=== PATIENT | female | born 1940 | race Caucasian/White ===

== ENCOUNTER 2017-05-05 09:38 | Day surgery (SDC) | payer MEDICARE, OTHER ==
[~2017-05-05 09:38] MED LIST: Bisacodyl 5 MG Tab PO PRN; Cyclobenzaprine 10 MG Tab PO PRN; Lactated Ringers 1,000 ML IV SCH; Lactated Ringers 1,000 ML ONE; Lidocaine 1% 6 ML ONE; Lidocaine 1%/Sod Bicarbonate in NS 8.4% 1 ML Syringe IV PRN; Magnesium Hydroxide 400 MG/5 ML Susp 30 ML Cup PO PRN; Naloxone 0.4 MG/ML SDV IVPUSH PRN; Ondansetron 4 MG/2 ML SDV IVPUSH PRN; Ondansetron 4 MG/2 ML SDV ONE; Propofol 200 MG/20 ML SDV ONE; Sennosides 8.6 MG Tab PO PRN; Sodium Chloride 0.9% 10 ML Syringe FLUSH PRN; ceFAZolin 1 GM Vial ONE; diphenhydrAMINE 50 MG/ML SDV IVPUSH PRN; fentaNYL 100 MCG/2 ML SDV ONE
[2017-05-05] MEDS ORDERED: Vancomycin 1 GM SDV ONE (10:03)
[2017-05-05] MEDS ORDERED: ceFAZolin 1 GM Vial ONE (10:03)
[2017-05-05] MEDS ORDERED: Bupivacaine 0.25% 30 ML SDV ONE (10:04)
[2017-05-05] MEDS ORDERED: Iodine/Sodium Iodide 2% Tincture 30 ML Bottle ONE (10:04)
--- NOTE | 2017-05-05 10:31 | PCM.PREANE ---
Preanesthetic Assessment - Anesthesia/Transfusion/Family Hx Anesthesia History: Prior Anesthesia Without Reaction Family History of Anesthesia Reaction: No Transfusion History: No Prior Transfusion(s) - Review of Systems General: No Symptoms Pulmonary: No Symptoms Cardiovascular: No Symptoms Gastrointestinal: No Symptoms Neurological: No Symptoms Other: Reports: Thyroid Problems (hypothyroid) - Physical Assessment NPO Status Date: 05/04/17 NPO Status Time: 00:00 Pulse: 57 O2 Sat by Pulse Oximetry: 96 Respiratory Rate: 20 Blood Pressure: 155/73 Temperature: 37.2 C Height: 1.56 m Weight: 78.517 kg ASA Class: 2 Mental Status: Alert & Oriented x3 Dentition: Reports: Normal Dentition, Broken Tooth/Teeth (bottom right) Thyro-Mental Finger Breadths: 3 Mouth Opening Finger Breadths: 3 ROM/Head Extension: Full Lungs: Clear to Auscultation, Normal Respiratory Effort Cardiovascular: Regular Rate, Regular Rhythm, No Murmurs - Lab Values: Laboratory Last Values MRSA (PCR) Negative 04/22/17 10:58 - Imaging/EKG Impressions: EKG 04/21/2017 sinus bradycardia - Allergies Allergies/Adverse Reactions: Allergies Allergy/AdvReac Type Severity Reaction Status Date / Time No Known Allergies Allergy Verified 05/02/17 12:40 - Anesthesia Plan Pre-Op Medication Ordered: None - Acknowledgements Anesthesia Type Planned: Spinal Pt an Appropriate Candidate for the Planned Anesthesia: Yes Alternatives and Risks of Anesthesia Discussed w Pt/Guardian: Yes Pt/Guardian Understands and Agrees with Anesthesia Plan: Yes PreAnesthesia Questionnaire HEENT History: Reports: Cataract, Impaired Vision Cardiovascular History: Reports: Blood Clots/VTE/DVT, High Cholesterol, Hypertension, Other (See Below) Other Cardiovascular History: chronic venous insufficiency Respiratory History: Reports: Other (See Below) Other Respiratory History: chronic cough Genitourinary History: Reports: None [employer] 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 Musculoskeletal History: Reports: Osteoarthritis, Other (See Below) Other Musculoskeletal History: restless leg syndrome, scalp laceration, chronic knee pain Neurological History: Reports: None Psychiatric History: Reports: Depression Endocrine/Metabolic History: Reports: Hypothyroidism, Osteopenia Hematologic History: Reports: None Immunologic History: Reports: None Oncologic (Cancer) History: Reports: None Dermatologic History: Reports: Other (See Below) Other Dermatologic History: moles - Past Surgical History Head Surgeries/Procedures: Reports: None Cardiovascular Surgical History: Reports: Varicose Respiratory Surgical History: Reports: None GI Surgical History: Reports: Appendectomy, Colonoscopy Female Surgical History: Reports: Breast Biopsy Male Surgical History: Reports: None Endocrine Surgical History: Reports: None Neurological Surgical History: Reports: None Musculoskeletal Surgical History: Reports: Arthroscopic Knee Oncologic Surgical History: Reports: None Dermatological Surgical History: Reports: None - SUBSTANCE USE Smoking Status *Q: Never Smoker Tobacco Use Within Last Twelve Months: No Second Hand Smoke Exposure: No Days Per Week of Alcohol Use: 0 Number of Drinks Per Day: 0 Total Drinks Per Week: 0 Recreational Drug Use History: No - HOME MEDS Home Medications: Home Meds Aspirin [Halfprin] 81 mg PO DAILY 05/02/17 [History] Cholecalciferol (Vitamin D3) [Vitamin D3] 5,000 unit PO DAILY 05/02/17 [History] FLUoxetine HCl [Fluoxetine HCl] 20 mg PO DAILY 05/02/17 [History] Levothyroxine 75 mcg PO DAILY 05/02/17 [History] Multivitamin [Daily Lamberto] 1 tab PO DAILY 05/02/17 [History] NIFEdipine [Nifedipine ER] 30 mg PO DAILY 05/02/17 [History] Protandium Syndergizer 1 tab PO DAILY 05/02/17 [History] Ubidecarenone [Coq-10] 100 mg PO DAILY 05/02/17 [History] - CURRENT (IN HOUSE) MEDS Current Meds: Current Medications Bisacodyl (Dulcolax) 5 mg PO DAILY PRN PRN Reason: Constipation Cyclobenzaprine HCl (Flexeril) 10 mg PO TID PRN PRN Reason: Spasms Diphenhydramine HCl (Benadryl) 25 mg IVPUSH Q4H PRN PRN Reason: Nausea Docusate Sodium (Colace) 100 mg PO BID ELIZABETH Famotidine (Pepcid) 20 mg PO Q12H ELIZABETH Lactated Ringer's (Ringers, Lactated) 1,000 mls @ 125 mls/hr IV ASDIRECTED ELIZABETH Cefazolin Sodium/Dextrose 2 gm (/ Premix) 50 mls @ 100 mls/hr IV Q8H ELIZABETH Stop: 05/05/17 23:44 Ketorolac Tromethamine (Toradol) 15 mg IVPUSH Q6H PRN PRN Reason: Pain Lidocaine/Sodium Bicarbonate (Buffered Lidocaine 1% In Ns 8.4%) 0.25 ml IV ONETIME PRN PRN Reason: Prior to IV Start Magnesium Hydroxide (Milk Of Magnesia) 30 ml PO BID PRN PRN Reason: Constipation Naloxone HCl (Narcan) 0.1 mg IVPUSH Q5M PRN PRN Reason: Oversedation Ondansetron HCl (Zofran) 4 mg IVPUSH Q6H PRN PRN Reason: Nausea/Vomiting Oxycodone/Acetaminophen (Percocet 325-5 Mg) 1 - 2 tab PO Q4H PRN PRN Reason: Pain Rivaroxaban (Xarelto) 10 mg PO DAILY ELIZABETH Senna (Senna) 8.6 mg PO BID PRN PRN Reason: Constipation Sodium Chloride (Saline Flush) 10 ml FLUSH ASDIRECTED PRN PRN Reason: Keep Vein Open Discontinued Medications Bupivacaine HCl (Marcaine 0.25%) Confirm Administered Dose 30 ml .ROUTE .STK- MED ONE Stop: 05/05/17 10:05 Cefazolin Sodium (Ancef) Confirm Administered Dose 2 gm .ROUTE .STK-MED ONE Stop: 05/05/17 07:10 Cefazolin Sodium (Ancef) Confirm Administered Dose 2 gm .ROUTE .STK-MED ONE Stop: 05/05/17 10:04 Morphine Sulfate 8 mg/Epinephrine HCl 0.3 mg/Cefuroxime Sodium 750 mg/Ketorolac Tromethamine 30 mg/Sodium Chloride 27.9 ml 0 mg .XX ONETIME ONE Stop: 05/05/17 06:50 Fentanyl (Sublimaze) Confirm Administered Dose 100 mcg .ROUTE .STK-MED ONE Stop: 05/05/17 08:07 Lidocaine HCl (Xylocaine-Mpf 1%) Confirm Administered Dose 6 mls @ as directed .ROUTE .STK-MED ONE Stop: 05/05/17 08:06 Lactated Ringer's (Ringers, Lactated) Confirm Administered Dose 1,000 mls @ as directed .ROUTE .STK-MED ONE Stop: 05/05/17 08:06 Iodine (Iodine 2% Mild Tincture) Confirm Administered Dose 30 ml .ROUTE .STK- MED ONE Stop: 05/05/17 10:05 Ondansetron HCl (Zofran) Confirm Administered Dose 4 mg .ROUTE .STK-MED ONE Stop: 05/05/17 08:06 Propofol (Diprivan 20 Ml) Confirm Administered Dose 400 mg .ROUTE .[facility]-MED ONE Stop: 05/05/17 08:06 Tranexamic Acid (Cyklokapron) Confirm Administered Dose 1,000 mg .ROUTE .[facility]- MED ONE Stop: 05/05/17 10:04 Vancomycin HCl (Vancomycin) Confirm Administered Dose 1 gm .ROUTE .[facility]-MED ONE Stop: 05/05/17 10:04
[2017-05-05] MEDS ORDERED: EPINEPHrine 1 MG/ML SDV ONE (10:43)
[2017-05-05] MEDS ORDERED: Ropivacaine 0.5% 5 MG/ML 30 ML SDV ONE (10:43)
[2017-05-05] MEDS ORDERED: Ondansetron 4 MG/2 ML SDV IVPUSH PRN (12:00)
--- NOTE | 2017-05-05 12:04 | PCM.SN ---
- Free Text/Narrative Note: Left selective femoral nerve block at the adductor canal for post-operative pain control Start: 1144 End: 1150 Chart reviewed. Consent signed. Questions answered. Appropriate monitors applied. Time out performed. Left mid-shaft femur evaluated with ultrasound. Scanning medially femur, I was able to identify the femoral artery in the adductor canal. The saphenous nerve was lateral to the artery. The skin was prepped lateral to the ultrasound probe with chlorahexadine. Skin localized with 3mL of 1% lidocaine. The 21ga 4 insulated block needle was inserted under direct ultrasound guidance into the adductor canal. 20mL of 0.5% ropivacaine with 1:200,000 epinephrine was injected cirmcumferentially about the nerve with intermittent negative aspiration. Patient tolerated the procedure well. See vital signs per anesthesia flow sheet. Block completed post spinal intraop. Aldair Garcia CRNA
[2017-05-05] MEDS ORDERED: ePHEDrine/Normal Saline 25 MG/5 ML Syringe ONE (12:09)
[2017-05-05] MEDS ORDERED: Propofol 200 MG/20 ML SDV ONE (12:40)
[2017-05-05] MEDS: Morphine 8 MG, EPINEPHrine 0.3 MG, Cefuroxime 750 MG, Ketorolac 30 MG, Sodium Chloride ... ONE ×5 (13:03)
[2017-05-05] MEDS ORDERED: Ketorolac 30 MG/ML SDV ONE (13:13)
[2017-05-05] MEDS ORDERED: fentaNYL 100 MCG/2 ML SDV ONE (13:23)
[2017-05-05] MEDS ORDERED: Lactated Ringers 1,000 ML ONE (13:27)
--- NOTE | 2017-05-05 13:51 | PCM.POSTAN ---
POST ANESTHESIA ASSESSMENT - MENTAL STATUS Mental Status: Alert, Oriented - VITAL SIGNS Pulse Rate: 66 SaO2: 100 Resp Rate: 16 Blood Pressure: 121/61 Temperature: 37.3 C - RESPIRATORY Respiratory Status: Respiratory Rate WNL, Airway Patent, O2 Saturation Stable, Supplemental Oxygen - CARDIOVASCULAR CV Status: Pulse Rate WNL, Blood Pressure Stable - GASTROINTESTINAL GI Status: No Symptoms - PAIN Pain Score: 0 - POST OP HYDRATION Hydration Status: Adequate & Stable
[2017-05-05] MEDS: fentaNYL 100 MCG/2 ML SDV IVPUSH PRN ×2 (14:04→14:33)
--- NOTE | 2017-05-05 14:23 | CR ---
Left knee: AP and lateral views of the left knee were obtained. Comparison: No prior left knee exam. Knee prosthesis is seen. Components are aligned. Soft tissue air is noted from the surgical procedure. Underlying bony structures are intact. Impression: 1. Satisfactory radiographic appearance of recently placed left knee prosthesis. Diagnostic code #2
[2017-05-05] MEDS: ceFAZolin 2 GM in Premix Bag 1 BAG IV SCH (18:19)
--- NOTE | 2017-05-05 20:48 | PCM.CONS ---
H&P History of Present Illness - General Date of Service: 05/05/17 Admit Problem/Dx: Admission Diagnosis/Problem Admission Diagnosis/Problem Osteoarthritis of knee Source of Information: Patient History Limitations: Reports: No Limitations - History of Present Illness Initial Comments - Free Text/Narative: Karlene is a pleasant 76-year-old female status post left total knee arthroplasty with Dr. Carrillo earlier today. She is doing well now, she was quite nauseous postoperatively that seems to have resolved. She did eat supper which is sitting well. She has minimal to no complaints of knee pain at this time. Vital signs are stable, she is on supplemental oxygen at this point. Past medical history: DVT to left lower extremity, venous insufficiency/ varicose veins, hypertension, hyperlipidemia, osteoarthritis, restless leg syndrome, hypothyroidism, osteopenia. Hospitalist service is consulted for postoperative medical management. Patient is full code status. PCP is in [facility]. - Related Data Allergies/Adverse Reactions: Allergies Allergy/AdvReac Type Severity Reaction Status Date / Time No Known Allergies Allergy Verified 05/05/17 10:43 Home Medications: Home Meds Aspirin [Halfprin] 81 mg PO DAILY 05/02/17 [History] Cholecalciferol (Vitamin D3) [Vitamin D3] 5,000 unit PO DAILY 05/02/17 [History] FLUoxetine HCl [Fluoxetine HCl] 20 mg PO DAILY 05/02/17 [History] Levothyroxine 75 mcg PO DAILY 05/02/17 [History] Multivitamin [Daily Lamberto] 1 tab PO DAILY 05/02/17 [History] NIFEdipine [Nifedipine ER] 30 mg PO DAILY 05/02/17 [History] Protandium Syndergizer 1 tab PO DAILY 05/02/17 [History] Ubidecarenone [Coq-10] 100 mg PO DAILY 05/02/17 [History] Past Medical History HEENT History: Reports: Cataract, Impaired Vision Cardiovascular History: Reports: Blood Clots/VTE/DVT, High Cholesterol, Hypertension, Other (See Below) Other Cardiovascular History: chronic venous insufficiency Respiratory History: Reports: Other (See Below) Other Respiratory History: chronic cough Genitourinary History: Reports: None [employer] 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 Musculoskeletal History: Reports: Osteoarthritis, Other (See Below) Other Musculoskeletal History: restless leg syndrome, scalp laceration, chronic knee pain Neurological History: Reports: None Psychiatric History: Reports: Depression Endocrine/Metabolic History: Reports: Hypothyroidism, Osteopenia Hematologic History: Reports: None Immunologic History: Reports: None Oncologic (Cancer) History: Reports: None Dermatologic History: Reports: Other (See Below) Other Dermatologic History: moles - Past Surgical History Head Surgeries/Procedures: Reports: None Cardiovascular Surgical History: Reports: Varicose Respiratory Surgical History: Reports: None GI Surgical History: Reports: Appendectomy, Colonoscopy Female Surgical History: Reports: Breast Biopsy Male Surgical History: Reports: None Endocrine Surgical History: Reports: None Neurological Surgical History: Reports: None Musculoskeletal Surgical History: Reports: Arthroscopic Knee Oncologic Surgical History: Reports: None Dermatological Surgical History: Reports: None Social & Family History - Tobacco Use Smoking Status *Q: Never Smoker Second Hand Smoke Exposure: No - Caffeine Use Caffeine Use: Reports: Coffee - Alcohol Use Days Per Week of Alcohol Use: 0 Number of Drinks Per Day: 0 Total Drinks Per Week: 0 - Recreational Drug Use Recreational Drug Use: No Drug Use in Last 12 Months: No H&P Review of Systems - Review of Systems: Review Of Systems: See Below General: Reports: No Symptoms HEENT: Reports: No Symptoms Pulmonary: Reports: No Symptoms Cardiovascular: Reports: No Symptoms Gastrointestinal: Reports: No Symptoms Genitourinary: Reports: No Symptoms Musculoskeletal: Reports: Leg Pain (Minimal complaints of knee pain) Neurological: Denies: Dizziness, Headache Exam - Exam Exam: See Below - Vital Signs Vital Signs: Last Vital Signs Temp 98.5 F 05/05/17 18:08 Pulse 67 05/05/17 18:32 Resp 13 05/05/17 14:40 BP 159/70 H 05/05/17 18:32 Pulse Ox 100 05/05/17 18:32 Weight: 173 lb 1.6 oz - Exam Quality Assessment: Supplemental Oxygen, DVT Prophylaxis General: Alert, Oriented, Cooperative HEENT: Conjunctiva Clear, EOMI, Hearing Intact, Mucosa Moist & [place], Pupils Equal, PERRLA Neck: Supple Lungs: Clear to Auscultation, Normal Respiratory Effort Cardiovascular: Regular Rate, Regular Rhythm, Normal S1, Normal S2, Systolic Murmur GI/Abdominal Exam: Normal Bowel Sounds (Grade 2), Soft, Non-Tender (Female) Exam: Deferred Rectal (Female) Exam: Deferred Back Exam: Normal Inspection Extremities: Other (SAVAGE hose to right lower extremity, left is with Carrillo wrap present, ice to the left knee. CMS is present and equal bilaterally to lower extremities) Skin: Warm, Dry Neuro Extensive - Mental Status: Alert, Oriented x3, Normal Mood/Affect, Normal Cognition, Memory Intact Psychiatric: Alert, Normal Affect, Normal Mood Consult PN Assessment/Plan POD#: 0 (1) S/P total knee arthroplasty SNOMED Code(s): 3926620564496, 3475708127281 Code(s): Z96.659 - PRESENCE OF UNSPECIFIED ARTIFICIAL KNEE JOINT Priority: High Current Visit: Yes Qualifiers: Laterality: left Qualified Code(s): Z96.652 - Presence of left artificial knee joint (2) Osteoarthritis SNOMED Code(s): 275872986 Code(s): M19.90 - UNSPECIFIED OSTEOARTHRITIS, UNSPECIFIED SITE Priority: High Current Visit: Yes Qualifiers: Osteoarthritis location: knee Osteoarthritis type: primary Laterality: left Qualified Code(s): M17.12 - Unilateral primary osteoarthritis, left knee (3) Hx of deep venous thrombosis SNOMED Code(s): 651818362 Code(s): Z86.718 - PERSONAL HISTORY OF OTHER VENOUS THROMBOSIS AND EMBOLISM Priority: Medium Current Visit: No (4) HTN (hypertension) SNOMED Code(s): 53185186 Code(s): I10 - ESSENTIAL (PRIMARY) HYPERTENSION Priority: Medium Current Visit: No Qualifiers: Hypertension type: essential hypertension Qualified Code(s): I10 - Essential (primary) hypertension (5) HLD (hyperlipidemia) SNOMED Code(s): 68940950 Code(s): E78.5 - HYPERLIPIDEMIA, UNSPECIFIED Priority: Low Current Visit : No Qualifiers: Hyperlipidemia type: unspecified Qualified Code(s): E78.5 - Hyperlipidemia , unspecified (6) Hypothyroid SNOMED Code(s): 30161816 Code(s): E03.9 - HYPOTHYROIDISM, UNSPECIFIED Priority: Low Current Visit : No Qualifiers: Hypothyroidism type: unspecified Qualified Code(s): E03.9 - Hypothyroidism , unspecified (7) Osteopenia SNOMED Code(s): 949739779 Code(s): M85.80 - OTH DISRD OF BONE DENSITY AND STRUCTURE, UNSPECIFIED SITE Priority: Medium Current Visit: Yes Qualifiers: Laterality: unspecified laterality Problem List Initiated/Reviewed/Updated: Yes Plan: I/P: S/P total knee arthroplasty, POD # 0, Dr. Kay - Pain management and DVT prophylax - PT/OT - RT/IS - Hgb preoperatively was 15.0 -Follow a.m. labs Chronic conditions: History of left DVT, venous insufficiency/varicose veins- per orthopedics patient will be discharged on zarelto for DVT prophylaxis Hypertension Hyperlipidemia Restless leg syndrome Hypothyroidism Osteopenia Other: GI Prophylax CM/SW for DC planning--patient plans discharge home with family tomorrow Patient is full Code status.
[2017-05-05] MEDS: Famotidine 20 MG Tab PO SCH (21:39)
[2017-05-05] MEDS: Docusate Sodium 100 MG Cap PO SCH (21:39)
[2017-05-05] MEDS: Ketorolac 15 MG/ML SDV IVPUSH PRN (21:41)
[2017-05-06] MEDS: ceFAZolin 2 GM in Premix Bag 1 BAG IV SCH ×2 (01:49→09:47)
[2017-05-06] MEDS: Ketorolac 15 MG/ML SDV IVPUSH PRN (03:40)
[2017-05-06] MEDS ORDERED: LEVOTHYROXINE 75 MCG PO SCH (06:00)
[2017-05-06] MEDS: Famotidine 20 MG Tab PO SCH (08:07)
[2017-05-06] MEDS: Docusate Sodium 100 MG Cap PO SCH (08:07)
[2017-05-06] MEDS: Acetaminophen/oxyCODONE 325-5 MG Tab PO PRN ×2 (08:08→13:01)
[2017-05-06] MEDS: Morphine 8 MG, EPINEPHrine 0.3 MG, Cefuroxime 750 MG, Ketorolac 30 MG, Sodium Chloride ... ONE ×5 (08:18)
--- NOTE | 2017-05-06 08:51 | PCM48HPAN ---
Post Anesthesia Note - EVALUATION WITHIN 48HRS OF ANESTHETIC Vital Signs in Normal Range: Yes Patient Participated in Evaluation: Yes Respiratory Function Stable: Yes Airway Patent: Yes Cardiovascular Function Stable: Yes Hydration Status Stable: Yes Pain Control Satisfactory: Yes Nausea and Vomiting Control Satisfactory: Yes Mental Status Recovered: Yes
[2017-05-06] MEDS ORDERED: FLUOXETINE 20 MG PO SCH (09:00)
[2017-05-06] MEDS ORDERED: Cholecalciferol (Vitamin D3) 1,000 Unit Tab PO SCH (09:00)
[2017-05-06] MEDS ORDERED: NIFEDIPINE 30 MG PO SCH (09:00)
[2017-05-06] MEDS ORDERED: Non-Formulary Medication 1 Each (Ubidecarenone 100 MG) PO SCH (09:00)
[2017-05-06] MEDS ORDERED: Rivaroxaban 10 MG Tab PO SCH (09:00)
--- NOTE | 2017-05-06 09:33 | PCM.CONSN ---
- General Info Date of Service: 05/06/17 Admission Dx/Problem (Free Text): Admission Diagnosis/Problem Admission Diagnosis/Problem Osteoarthritis of knee POD #1, S/P TKA Doing well, pain controlled, no nausea. Ambulated with PT, did well. Voiding. Plans for DC home today. Functional Status: Reports: Pain Controlled, Tolerating Diet, Ambulating, Urinating, Incentive Spirometry - Review of Systems General: Reports: No Symptoms HEENT: Reports: No Symptoms Pulmonary: Reports: No Symptoms Cardiovascular: Reports: No Symptoms Gastrointestinal: Reports: No Symptoms Genitourinary: Reports: No Symptoms Musculoskeletal: Reports: Leg Pain Skin: Reports: No Symptoms Neurological: Reports: No Symptoms Psychiatric: Reports: No Symptoms - Patient Data Vitals - Most Recent: Last Vital Signs Temp 98.2 F 05/06/17 08:05 Pulse 73 05/06/17 08:05 Resp 16 05/06/17 08:05 BP 159/86 H 05/06/17 08:08 Pulse Ox 99 05/06/17 08:05 Weight - Most Recent: 173 lb 1.6 oz I&O - Last 24 Hours: Intake & Output 05/05/17 05/06/17 05/06/17 22:59 06:59 14:59 Intake Total 240 1200 Output Total 1250 Balance 240 -50 Lab Results Last 24 Hours: Laboratory Results - last 24 hr 05/06/17 05/06/17 Range/Units 06:36 06:36 WBC 7.64 (3.98-10.04) K/mm3 RBC 4.23 (3.98-5.22) M/mm3 Hgb 12.7 (11.2-15.7) gm/L Hct 38.0 (34.1-44.9) % MCV 89.8 (79.4-94.8) fl MCH 30.0 (25.6-32.2) pg MCHC 33.4 (32.2-35.5) g/dl RDW Std Deviation 42.9 (36.4-46.3) fL Plt Count 150 L (182-369) K/mm3 MPV 11.4 (9.4-12.3) fl Sodium 137 (136-145) mEq/L Potassium 3.8 (3.5-5.1) mEq/L Chloride 103 (98-107) mEq/L Carbon Dioxide 26 (21-32) mEq/L Anion Gap 11.8 (5-15) BUN 16 (7-18) mg/dL Creatinine 0.9 (0.55-1.02) mg/dL Est Cr Clr Drug Dosing 41.09 mL/min Estimated GFR (MDRD) > 60 (>60) mL/min BUN/Creatinine Ratio 17.8 (14-18) Glucose 167 H (83-115) mg/dL Calcium 8.5 (8.5-10.1) mg/dL Total Bilirubin 0.6 (0.2-1.0) mg/dL AST 17 (15-37) U/L ALT 18 (14-59) U/L Alkaline Phosphatase 61 (46-116) U/L Total Protein 5.9 L (6.4-8.2) g/dl Albumin 2.9 L (3.4-5.0) g/dl Globulin 3.0 gm/dL Albumin/Globulin Ratio 1.0 (1-2) Med Orders - Current: Current Medications Bisacodyl (Dulcolax) 5 mg PO DAILY PRN PRN Reason: Constipation Cholecalciferol (Vitamin D3) 5,000 units PO DAILY [facility] Last Admin: 05/06/17 08:07 Dose: 5,000 units Cyclobenzaprine HCl (Flexeril) 10 mg PO TID PRN PRN Reason: Spasms Diphenhydramine HCl (Benadryl) 25 mg IVPUSH Q4H PRN PRN Reason: Nausea Docusate Sodium (Colace) 100 mg PO BID [facility] Last Admin: 05/06/17 08:07 Dose: 100 mg Famotidine (Pepcid) 20 mg PO Q12H [facility] Last Admin: 05/06/17 08:07 Dose: 20 mg Fluoxetine HCl (Prozac) 20 mg PO DAILY [facility] Last Admin: 05/06/17 08:08 Dose: 20 mg Cefazolin Sodium/Dextrose 2 gm (/ Premix) 50 mls @ 100 mls/hr IV Q8H [facility] Stop: 05/06/17 10:29 Last Admin: 05/06/17 01:49 Dose: 100 mls/hr Ketorolac Tromethamine (Toradol) 15 mg IVPUSH Q6H PRN PRN Reason: Pain Last Admin: 05/06/17 03:40 Dose: 15 mg Levothyroxine Sodium (Levothyroxine) 75 mcg PO ACBRK [facility] Last Admin: 05/06/17 08:08 Dose: 75 mcg Magnesium Hydroxide (Milk Of Magnesia) 30 ml PO BID PRN PRN Reason: Constipation Naloxone HCl (Narcan) 0.1 mg IVPUSH Q5M PRN PRN Reason: Oversedation Nifedipine (Procardia Xl) 30 mg PO DAILY [facility] Last Admin: 05/06/17 08:08 Dose: 30 mg Ondansetron HCl (Zofran) 4 mg IVPUSH Q6H PRN PRN Reason: Nausea/Vomiting Last Admin: 05/06/17 03:40 Dose: 4 mg Oxycodone/Acetaminophen (Percocet 325-5 Mg) 1 - 2 tab PO Q4H PRN PRN Reason: Pain Last Admin: 05/06/17 08:08 Dose: 2 tab Rivaroxaban (Xarelto) 10 mg PO DAILY [facility] Last Admin: 05/06/17 08:08 Dose: 10 mg Senna (Senna) 8.6 mg PO BID PRN PRN Reason: Constipation Sodium Chloride (Saline Flush) 10 ml FLUSH ASDIRECTED PRN PRN Reason: Keep Vein Open Discontinued Medications Bupivacaine HCl (Marcaine 0.25%) Confirm Administered Dose 30 ml .ROUTE .STK- MED ONE Stop: 05/05/17 10:05 Last Admin: 05/05/17 13:03 Dose: 30 ml Cefazolin Sodium (Ancef) Confirm Administered Dose 2 gm .ROUTE .STK-MED ONE Stop: 05/05/17 07:10 Last Admin: 05/05/17 12:57 Dose: 2 gm Cefazolin Sodium (Ancef) Confirm Administered Dose 2 gm .ROUTE .STK-MED ONE Stop: 05/05/17 10:04 Morphine Sulfate 8 mg/Epinephrine HCl 0.3 mg/Cefuroxime Sodium 750 mg/Ketorolac Tromethamine 30 mg/Sodium Chloride 27.9 ml 0 mg .XX ONETIME ONE Stop: 05/05/17 06:50 Last Admin: 05/06/17 08:18 Dose: Not Given Ephedrine Sulfate (Ephedrine In Ns) Confirm Administered Dose 25 mg .ROUTE .STK- MED ONE Stop: 05/05/17 12:10 Epinephrine HCl (Adrenalin) Confirm Administered Dose 1 mg .ROUTE .STK-MED ONE Stop: 05/05/17 10:44 Fentanyl (Sublimaze) Confirm Administered Dose 100 mcg .ROUTE .STK-MED ONE Stop: 05/05/17 08:07 Fentanyl (Sublimaze) 50 mcg IVPUSH Q5M PRN PRN Reason: Pain Stop: 05/05/17 15:00 Last Admin: 05/05/17 14:33 Dose: 50 mcg Fentanyl (Sublimaze) Confirm Administered Dose 100 mcg .ROUTE .STK-MED ONE Stop: 05/05/17 13:24 Lactated Ringer's (Ringers, Lactated) 1,000 mls @ 125 mls/hr IV ASDIRECTED [facility] Last Admin: 05/05/17 10:10 Dose: 125 mls/hr Lidocaine HCl (Xylocaine-Mpf 1%) Confirm Administered Dose 6 mls @ as directed .ROUTE .STK-MED ONE Stop: 05/05/17 08:06 Lactated Ringer's (Ringers, Lactated) Confirm Administered Dose 1,000 mls @ as directed .ROUTE .STK-MED ONE Stop: 05/05/17 08:06 Lactated Ringer's (Ringers, Lactated) Confirm Administered Dose 1,000 mls @ as directed .ROUTE .STK-MED ONE Stop: 05/05/17 13:28 Iodine (Iodine 2% Mild Tincture) Confirm Administered Dose 30 ml .ROUTE .STK- MED ONE Stop: 05/05/17 10:05 Last Admin: 05/05/17 12:54 Dose: 18 ml Ketorolac Tromethamine (Toradol) Confirm Administered Dose 30 mg .ROUTE .STK- MED ONE Stop: 05/05/17 13:14 Lidocaine/Sodium Bicarbonate (Buffered Lidocaine 1% In Ns 8.4%) 0.25 ml IV ONETIME PRN PRN Reason: Prior to IV Start Last Admin: 05/05/17 10:09 Dose: 0.25 ml Non-Formulary Medication (Ubidecarenone) 100 mg PO DAILY [facility] Ondansetron HCl (Zofran) Confirm Administered Dose 4 mg .ROUTE .STK-MED ONE Stop: 05/05/17 08:06 Ondansetron HCl (Zofran) 4 mg IVPUSH ONETIME PRN PRN Reason: Nausea/Vomiting Stop: 05/05/17 15:00 Propofol (Diprivan 20 Ml) Confirm Administered Dose 400 mg .ROUTE .STK-MED ONE Stop: 05/05/17 08:06 Propofol (Diprivan 20 Ml) Confirm Administered Dose 200 mg .ROUTE .STK-MED ONE Stop: 05/05/17 12:41 Ropivacaine (Naropin 0.5%) Confirm Administered Dose 30 ml .ROUTE .STK-MED ONE Stop: 05/05/17 10:44 Tranexamic Acid (Cyklokapron) Confirm Administered Dose 1,000 mg .ROUTE .STK- MED ONE Stop: 05/05/17 10:04 Last Admin: 05/05/17 13:09 Dose: 1,000 mg Vancomycin HCl (Vancomycin) Confirm Administered Dose 1 gm .ROUTE .STK-MED ONE Stop: 05/05/17 10:04 Last Admin: 05/05/17 13:05 Dose: 1 gm - Exam Quality Assessment: DVT Prophylaxis General: Alert, Oriented, Cooperative, No Acute Distress HEENT: Pupils Equal, EOMI, Mucous Membr. Moist/Wise Neck: Supple Lungs: Clear to Auscultation, Normal Respiratory Effort Cardiovascular: Regular Rate, Regular Rhythm GI/Abdominal Exam: Normal Bowel Sounds, Soft, Non-Tender (Female) Exam: Deferred Extremities: Other (Teds, SCD's and ice to knee) Peripheral Pulses: 2+: Dorsalis Pedis (L), Dorsalis Pedis (R) Neurological: No New Focal Deficit Psy/Mental Status: Alert, Normal Affect, Normal Mood Consult PN Assessment/Plan POD#: 1 (1) S/P total knee arthroplasty SNOMED Code(s): 1342317583715, 4083591417069 Code(s): Z96.659 - PRESENCE OF UNSPECIFIED ARTIFICIAL KNEE JOINT Priority: High Current Visit: Yes Qualifiers: Laterality: left Qualified Code(s): Z96.652 - Presence of left artificial knee joint (2) Osteoarthritis SNOMED Code(s): 244040987 Code(s): M19.90 - UNSPECIFIED OSTEOARTHRITIS, UNSPECIFIED SITE Priority: High Current Visit: Yes Qualifiers: Osteoarthritis location: knee Osteoarthritis type: primary Laterality: left Qualified Code(s): M17.12 - Unilateral primary osteoarthritis, left knee (3) Hx of deep venous thrombosis SNOMED Code(s): 587449897 Code(s): Z86.718 - PERSONAL HISTORY OF OTHER VENOUS THROMBOSIS AND EMBOLISM Priority: Medium Current Visit: No (4) HTN (hypertension) SNOMED Code(s): 32631139 Code(s): I10 - ESSENTIAL (PRIMARY) HYPERTENSION Priority: Medium Current Visit: No Qualifiers: Hypertension type: essential hypertension Qualified Code(s): I10 - Essential (primary) hypertension (5) HLD (hyperlipidemia) SNOMED Code(s): 21878243 Code(s): E78.5 - HYPERLIPIDEMIA, UNSPECIFIED Priority: Low Current Visit : No Qualifiers: Hyperlipidemia type: unspecified Qualified Code(s): E78.5 - Hyperlipidemia , unspecified (6) Hypothyroid SNOMED Code(s): 70895916 Code(s): E03.9 - HYPOTHYROIDISM, UNSPECIFIED Priority: Low Current Visit : No Qualifiers: Hypothyroidism type: unspecified Qualified Code(s): E03.9 - Hypothyroidism , unspecified (7) Osteopenia SNOMED Code(s): 559369154 Code(s): M85.80 - OT DISRD OF BONE DENSITY AND STRUCTURE, UNSPECIFIED SITE Priority: Medium Current Visit: Yes Qualifiers: Laterality: unspecified laterality Problem List Initiated/Reviewed/Updated: Yes Plan: I/P: S/P total knee arthroplasty, POD # 1, Dr. Kay - Pain management and DVT prophylax - PT/OT - RT/IS - Hgb preoperatively was 15.0---> 12.7 -Follow a.m. labs -VSS Chronic conditions: History of left DVT, venous insufficiency/varicose veins- per orthopedics patient will be discharged on zarelto for DVT prophylaxis Hypertension Hyperlipidemia Restless leg syndrome Hypothyroidism Osteopenia Other: GI Prophylax CM/SW for DC planning--patient plans discharge home with family today. OK from Hospitalist standpoint for DC home today. Patient is full Code status.
--- NOTE | 2017-05-06 12:51 | PCM.SURGPN ---
- General Info Date of Service: 05/06/17 POD#: 1 Functional Status: Reports: Pain Controlled, Tolerating Diet, Ambulating, Urinating, Incentive Spirometry - Review of Systems Musculoskeletal: Reports: Other (The pt states she is prepared for discharge to home.) - Patient Data Vitals - Most Recent: Last Vital Signs Temp 98.2 F 05/06/17 12:05 Pulse 69 05/06/17 12:05 Resp 18 05/06/17 12:05 BP 157/73 H 05/06/17 12:05 Pulse Ox 95 05/06/17 12:05 Weight - Most Recent: 173 lb 1.6 oz I&O - Last 24 Hours: Intake & Output 05/05/17 05/06/17 05/06/17 22:59 06:59 14:59 Intake Total 240 1200 240 Output Total 1250 Balance 240 -50 240 Lab Results Last 24 Hrs: Laboratory Results - last 24 hr 05/06/17 05/06/17 Range/Units 06:36 06:36 WBC 7.64 (3.98-10.04) K/mm3 RBC 4.23 (3.98-5.22) M/mm3 Hgb 12.7 (11.2-15.7) gm/L Hct 38.0 (34.1-44.9) % MCV 89.8 (79.4-94.8) fl MCH 30.0 (25.6-32.2) pg MCHC 33.4 (32.2-35.5) g/dl RDW Std Deviation 42.9 (36.4-46.3) fL Plt Count 150 L (182-369) K/mm3 MPV 11.4 (9.4-12.3) fl Sodium 137 (136-145) mEq/L Potassium 3.8 (3.5-5.1) mEq/L Chloride 103 (98-107) mEq/L Carbon Dioxide 26 (21-32) mEq/L Anion Gap 11.8 (5-15) BUN 16 (7-18) mg/dL Creatinine 0.9 (0.55-1.02) mg/dL Est Cr Clr Drug Dosing 41.09 mL/min Estimated GFR (MDRD) > 60 (>60) mL/min BUN/Creatinine Ratio 17.8 (14-18) Glucose 167 H (83-115) mg/dL Calcium 8.5 (8.5-10.1) mg/dL Total Bilirubin 0.6 (0.2-1.0) mg/dL AST 17 (15-37) U/L ALT 18 (14-59) U/L Alkaline Phosphatase 61 (46-116) U/L Total Protein 5.9 L (6.4-8.2) g/dl Albumin 2.9 L (3.4-5.0) g/dl Globulin 3.0 gm/dL Albumin/Globulin Ratio 1.0 (1-2) Med Orders - Current: Current Medications Bisacodyl (Dulcolax) 5 mg PO DAILY PRN PRN Reason: Constipation Cholecalciferol (Vitamin D3) 5,000 units PO DAILY [facility] Last Admin: 05/06/17 08:07 Dose: 5,000 units Cyclobenzaprine HCl (Flexeril) 10 mg PO TID PRN PRN Reason: Spasms Diphenhydramine HCl (Benadryl) 25 mg IVPUSH Q4H PRN PRN Reason: Nausea Docusate Sodium (Colace) 100 mg PO BID [facility] Last Admin: 05/06/17 08:07 Dose: 100 mg Famotidine (Pepcid) 20 mg PO Q12H [facility] Last Admin: 05/06/17 08:07 Dose: 20 mg Fluoxetine HCl (Prozac) 20 mg PO DAILY [facility] Last Admin: 05/06/17 08:08 Dose: 20 mg Ketorolac Tromethamine (Toradol) 15 mg IVPUSH Q6H PRN PRN Reason: Pain Last Admin: 05/06/17 03:40 Dose: 15 mg Levothyroxine Sodium (Levothyroxine) 75 mcg PO ACBRK [facility] Last Admin: 05/06/17 08:08 Dose: 75 mcg Magnesium Hydroxide (Milk Of Magnesia) 30 ml PO BID PRN PRN Reason: Constipation Naloxone HCl (Narcan) 0.1 mg IVPUSH Q5M PRN PRN Reason: Oversedation Nifedipine (Procardia Xl) 30 mg PO DAILY [facility] Last Admin: 05/06/17 08:08 Dose: 30 mg Ondansetron HCl (Zofran) 4 mg IVPUSH Q6H PRN PRN Reason: Nausea/Vomiting Last Admin: 05/06/17 03:40 Dose: 4 mg Oxycodone/Acetaminophen (Percocet 325-5 Mg) 1 - 2 tab PO Q4H PRN PRN Reason: Pain Last Admin: 05/06/17 08:08 Dose: 2 tab Rivaroxaban (Xarelto) 10 mg PO DAILY [facility] Last Admin: 05/06/17 08:08 Dose: 10 mg Senna (Senna) 8.6 mg PO BID PRN PRN Reason: Constipation Sodium Chloride (Saline Flush) 10 ml FLUSH ASDIRECTED PRN PRN Reason: Keep Vein Open Discontinued Medications Bupivacaine HCl (Marcaine 0.25%) Confirm Administered Dose 30 ml .ROUTE .STK- MED ONE Stop: 05/05/17 10:05 Last Admin: 05/05/17 13:03 Dose: 30 ml Cefazolin Sodium (Ancef) Confirm Administered Dose 2 gm .ROUTE .STK-MED ONE Stop: 05/05/17 07:10 Last Admin: 05/05/17 12:57 Dose: 2 gm Cefazolin Sodium (Ancef) Confirm Administered Dose 2 gm .ROUTE .STK-MED ONE Stop: 05/05/17 10:04 Morphine Sulfate 8 mg/Epinephrine HCl 0.3 mg/Cefuroxime Sodium 750 mg/Ketorolac Tromethamine 30 mg/Sodium Chloride 27.9 ml 0 mg .XX ONETIME ONE Stop: 05/05/17 06:50 Last Admin: 05/06/17 08:18 Dose: Not Given Ephedrine Sulfate (Ephedrine In Ns) Confirm Administered Dose 25 mg .ROUTE .STK- MED ONE Stop: 05/05/17 12:10 Epinephrine HCl (Adrenalin) Confirm Administered Dose 1 mg .ROUTE .STK-MED ONE Stop: 05/05/17 10:44 Fentanyl (Sublimaze) Confirm Administered Dose 100 mcg .ROUTE .STK-MED ONE Stop: 05/05/17 08:07 Fentanyl (Sublimaze) 50 mcg IVPUSH Q5M PRN PRN Reason: Pain Stop: 05/05/17 15:00 Last Admin: 05/05/17 14:33 Dose: 50 mcg Fentanyl (Sublimaze) Confirm Administered Dose 100 mcg .ROUTE .STK-MED ONE Stop: 05/05/17 13:24 Lactated Ringer's (Ringers, Lactated) 1,000 mls @ 125 mls/hr IV ASDIRECTED [facility] Last Admin: 05/05/17 10:10 Dose: 125 mls/hr Cefazolin Sodium/Dextrose 2 gm (/ Premix) 50 mls @ 100 mls/hr IV Q8H [facility] Stop: 05/06/17 10:29 Last Admin: 05/06/17 09:47 Dose: 100 mls/hr Lidocaine HCl (Xylocaine-Mpf 1%) Confirm Administered Dose 6 mls @ as directed .ROUTE .STK-MED ONE Stop: 05/05/17 08:06 Lactated Ringer's (Ringers, Lactated) Confirm Administered Dose 1,000 mls @ as directed .ROUTE .STK-MED ONE Stop: 05/05/17 08:06 Lactated Ringer's (Ringers, Lactated) Confirm Administered Dose 1,000 mls @ as directed .ROUTE .STK-MED ONE Stop: 05/05/17 13:28 Iodine (Iodine 2% Mild Tincture) Confirm Administered Dose 30 ml .ROUTE .STK- MED ONE Stop: 05/05/17 10:05 Last Admin: 05/05/17 12:54 Dose: 18 ml Ketorolac Tromethamine (Toradol) Confirm Administered Dose 30 mg .ROUTE .STK- MED ONE Stop: 05/05/17 13:14 Lidocaine/Sodium Bicarbonate (Buffered Lidocaine 1% In Ns 8.4%) 0.25 ml IV ONETIME PRN PRN Reason: Prior to IV Start Last Admin: 05/05/17 10:09 Dose: 0.25 ml Non-Formulary Medication (Ubidecarenone) 100 mg PO DAILY [facility] Ondansetron HCl (Zofran) Confirm Administered Dose 4 mg .ROUTE .STK-MED ONE Stop: 05/05/17 08:06 Ondansetron HCl (Zofran) 4 mg IVPUSH ONETIME PRN PRN Reason: Nausea/Vomiting Stop: 05/05/17 15:00 Propofol (Diprivan 20 Ml) Confirm Administered Dose 400 mg .ROUTE .STK-MED ONE Stop: 05/05/17 08:06 Propofol (Diprivan 20 Ml) Confirm Administered Dose 200 mg .ROUTE .STK-MED ONE Stop: 05/05/17 12:41 Ropivacaine (Naropin 0.5%) Confirm Administered Dose 30 ml .ROUTE .STK-MED ONE Stop: 05/05/17 10:44 Tranexamic Acid (Cyklokapron) Confirm Administered Dose 1,000 mg .ROUTE .STK- MED ONE Stop: 05/05/17 10:04 Last Admin: 05/05/17 13:09 Dose: 1,000 mg Vancomycin HCl (Vancomycin) Confirm Administered Dose 1 gm .ROUTE .STK-MED ONE Stop: 05/05/17 10:04 Last Admin: 05/05/17 13:05 Dose: 1 gm - Exam Wound/Incisions: Dressing Dry and Intact General: Alert, Cooperative, No Acute Distress Lungs: Normal Respiratory Effort Extremities: Other (NVS intact for BLE. Jv's negative. ) - Problem List Review Problem List Initiated/Reviewed/Updated: Yes - My Orders Last 24 Hours: Active Orders 24 hr Category Date Time Status Pulse Oximetry [RC] ASDIRECTED Care 05/05/17 12:00 Active Cholecalciferol (Vitamin D3) [Vitamin D3] Med 05/06/17 09:00 Active 5,000 units PO DAILY Docusate Sodium [Colace] Med 05/05/17 21:00 Active 100 mg PO BID FLUoxetine [PROzac] Med 05/06/17 09:00 Active 20 mg PO DAILY Famotidine [Pepcid] Med 05/05/17 21:00 Active 20 mg PO Q12H Levothyroxine Med 05/06/17 06:00 Active 75 mcg PO ACBRK NIFEdipine [Procardia XL] Med 05/06/17 09:00 Active 30 mg PO DAILY Rivaroxaban [Xarelto] Med 05/06/17 09:00 Active 10 mg PO DAILY Medication Orders Bisacodyl (Dulcolax) 5 mg PO DAILY PRN PRN Reason: Constipation Cholecalciferol (Vitamin D3) 5,000 units PO DAILY [facility] Last Admin: 05/06/17 08:07 Dose: 5,000 units Cyclobenzaprine HCl (Flexeril) 10 mg PO TID PRN PRN Reason: Spasms Diphenhydramine HCl (Benadryl) 25 mg IVPUSH Q4H PRN PRN Reason: Nausea Docusate Sodium (Colace) 100 mg PO BID [facility] Last Admin: 05/06/17 08:07 Dose: 100 mg Admin: 05/05/17 21:39 Dose: 100 mg Famotidine (Pepcid) 20 mg PO Q12H [facility] Last Admin: 05/06/17 08:07 Dose: 20 mg Admin: 05/05/17 21:39 Dose: 20 mg Fluoxetine HCl (Prozac) 20 mg PO DAILY [facility] Last Admin: 05/06/17 08:08 Dose: 20 mg Ketorolac Tromethamine (Toradol) 15 mg IVPUSH Q6H PRN PRN Reason: Pain Last Admin: 05/06/17 03:40 Dose: 15 mg Admin: 05/05/17 21:41 Dose: 15 mg Levothyroxine Sodium (Levothyroxine) 75 mcg PO ACBRK [facility] Last Admin: 05/06/17 08:08 Dose: 75 mcg Magnesium Hydroxide (Milk Of Magnesia) 30 ml PO BID PRN PRN Reason: Constipation Naloxone HCl (Narcan) 0.1 mg IVPUSH Q5M PRN PRN Reason: Oversedation Nifedipine (Procardia Xl) 30 mg PO DAILY [facility] Last Admin: 05/06/17 08:08 Dose: 30 mg Ondansetron HCl (Zofran) 4 mg IVPUSH Q6H PRN PRN Reason: Nausea/Vomiting Last Admin: 05/06/17 03:40 Dose: 4 mg Oxycodone/Acetaminophen (Percocet 325-5 Mg) 1 - 2 tab PO Q4H PRN PRN Reason: Pain Last Admin: 05/06/17 08:08 Dose: 2 tab Rivaroxaban (Xarelto) 10 mg PO DAILY [facility] Last Admin: 05/06/17 08:08 Dose: 10 mg Senna (Senna) 8.6 mg PO BID PRN PRN Reason: Constipation Sodium Chloride (Saline Flush) 10 ml FLUSH ASDIRECTED PRN PRN Reason: Keep Vein Open - Assessment Assessment (Free Text/Narrative):: POD#1 - left TKA - Plan Plan (Free Text/Narrative):: 1. Xarelto x 40 days. 2. Outpatient P.T. 3. Hgb 12.7 today. 4. Discharge to home today and the pt will have the assistance of a family member. The pt's case was discussed with Dr. Kay.
--- NOTE | 2017-05-09 11:14 | PCM.OPNOTE ---
- General Post-Op/Procedure Note Date of Surgery/Procedure: 05/05/17 Operative Procedure(s): left total knee arthroplasty Pre Op Diagnosis: left knee osteoarthrosis Post-Op Diagnosis: Same Anesthesia Technique: Local, MAC, Spinal Primary Surgeon: Armando Kay Anesthesia Provider: Michael Escamilla Apparel Fashion Designer: Elda Denis Apparel Fashion Designer: Mariluz Alvarenga EBDomi in mLs: 200 Complications: None Condition: Good
--- NOTE | 2017-05-09 11:41 | OR ---
DATE OF OPERATION: 05/05/2017 SURGEON: Armando Kay MD OPERATION PERFORMED: Left total knee arthroplasty. PREOPERATIVE DIAGNOSIS: Left knee osteoarthrosis. POSTOPERATIVE DIAGNOSIS: Left knee osteoarthrosis. ANESTHESIA: Local MAC with spinal. ANESTHESIA PROVIDER: Michael Escamilla CRNA. ASSISTANTS: 1. Elda Denis PA-C. 2. Mariluz Alvarenga LPN. ESTIMATED BLOOD LOSS: 200 mL. COMPLICATIONS: None. CONDITION: Stable. IMPLANTS: 1. Oneida size 4 press-fit PS femur. 2. Oneida size 4 press-fit tibial base plate. 3. Oneida size 4, 9 mm PS X3 polyethylene. 4. Oneida size 32 x 10 mm press-fit asymmetric patella. DESCRIPTION OF PROCEDURE: The patient was identified in the preop holding area. Proper site was marked and identified by the surgeon. The patient was taken back to the operating theater. After adequate anesthesia, the patient's left lower extremity had a nonsterile tourniquet applied and it was then sterilely prepped and draped in the usual sterile fashion. OR timeout was performed. The patient received 2 g IV Ancef. At this time, left lower extremity was exsanguinated. Tourniquet was insufflated to 300 mmHg. Standard medial parapatellar incision was made. Medial parapatellar arthrotomy was created. Deep fibers of the MCL were raised and anterior fat pad was resected. At this time, attention was turned to the patella. Patella measured 24, it was resected to a 14 for a 32 x 10 mm patella. Drill holes were then drilled and found to be in adequate position. The drill was then drilled in the distal femur and the intramedullary distal femoral cutting guide was then placed. 10 mm was resected off the distal femur and was found to be an adequate resection. Sizing guide was placed. It was found to be a size 4 press-fit PS femur that was shown on the implant record at the beginning of this dictation. The drill holes were drilled for the epicondylar axis using Whitesides line and epicondyles as reference. At this time, the 4-in - 1 cutting block was placed. An anterior posterior and anterior and posterior chamfer cuts were then completed. The correct size box cut was then placed and the box cut was completed and found to be an adequate resection. Attention was turned to the tibia. The posterior medial lateral retractors were placed. The extramedullary tibial guide was placed. It was placed in the old footprint of the ACL. It was aligned with the center of the ankle and 0 degrees of slope, 9 mm was then resected off the unaffected lateral side. There was found to be an acceptable reduction. At this time, posterior osteophytes were removed along with medial and lateral meniscus. A trial implant was placed with a correct sized tibia that was mentioned at the beginning of the dictation. A Oneida size 4, 9 mm PS X3 polyethylene was then placed. The patient's knee was brought through range of motion. The patella was tracking centrally and was stable to varus and valgus stress. Alignment was found to be roughly at 0 degrees. The tibia was stamped and drilled in proper rotation. The universal tibial base plate was impacted into place. Next, the size 4 press-fit PS femur impacted into place and the Oneida size 4, 9 mm PS X3 polyethylene was placed. The patient's knee was brought into full extension. The patella was then press-fit into place at this time. Tourniquet was deflated. One liter dilute Betadine solution was irrigated through the knee along with 3 L of pulse lavage irrigation with Ancef. Periarticular injection was then completed. The patient's knee was brought through a range of motion. Knee found to be stable to varus valgus stress, the patella was tracking centrally with full range of motion. At this time, a #2 barbed suture was used for closure of the medial parapatellar arthrotomy. Topical tranexamic acid was placed. 2-0 Vicryl was used subcutaneously, a running 3-0 Monocryl was used subcuticularly. The patient tolerated the procedure well and was sent to the PACU in stable condition. MMODAL /[id number] ANIBAL
== END 2017-05-06 13:45 | disposition home or self-care (01) ==
LOC: JD.SDS 09:38 → EDSTATUS 12:15 → JD.MS 14:49 → JD.SDS 05-06 13:45
PROVIDERS: ATTEND Orthopaedic Surgery
DX: M17.12 Unilateral primary osteoarthritis, left knee (principal); M25.562 Pain in left knee
CPT/HCPCS: 27447; 36415; 64450; 73560; 80053; 85027; 87641; 97110; 97116; 97162; 97165; 97535; A9270; C1776; J0171; J0690; J0697; J1885; J2270; J2405; J2795; J3010; J3370; J3490; J7050; J7120; 01402; J2001; J2704